=== PATIENT | male | born 2000 | race Caucasian/White ===

== ENCOUNTER → 2024-12-18 16:44 | Outpatient (BNVA) | payer MEDICAID, SELFPAY | PROVIDERS: PCP Nurse Practitioner Family; Visit Provider Nurse Practitioner Family | DX: Z13.6 Encounter for screening for cardiovascular disorders (principal); K29.00 Acute gastritis without bleeding; E55.9 Vitamin D deficiency, unspecified; Z00.00 Encounter for general adult medical examination without abnormal findings | CPT/HCPCS: 80053; 80061; 81003; 82306; 83036; 84443; 85025 ==